=== PATIENT | female | born 1995 | race Two or more races ===

== ENCOUNTER 2017-12-01 21:40 | Emergency (ER) | payer MEDICAID ==
[~2017-12-01] VITALS: Ht 170.2 cm; Wt 94.2 kg
[~2017-12-01 21:40] MED LIST: IBUP-1984 PO; NO HOME MEDS; ONDA4TAB6 PO
[2017-12-01] MEDS ORDERED: ondansetron 4mg rapidly disintigrating tab PO ONE (22:20)
[2017-12-01 22:27] LABS: BASOPHILS % (AUTO) 0.3 % (0-1); EOSINOPHILS # (AUTO) 0.1 X10'3 (0-0.9); EOSINOPHILS % (AUTO) 0.7 % (0-6); HEMATOCRIT 40.9 % (35.0-45.0); HEMOGLOBIN 14.2 g/dl (12.0-16.0); LYMPHOCYTES % (AUTO) 15.7 % (21-51); MEAN CORPUSCULAR HEMOGLOBIN 30.8 PG (27.0-31.0); MEAN CORPUSCULAR HGB CONC 34.6 % (33.0-36.5); MEAN CORPUSCULAR VOLUME 89.1 FL (78-98); MEAN PLATELET VOLUME 10.3 FL (7.4-10.4); MONOCYTES # (AUTO) 1.1 X10'3 (0-0.9); MONOCYTES % (AUTO) 8.8 % (2-12); NEUTROPHILS # (AUTO) 9.3 X10'3 (1.8-7.7); NEUTROPHILS % (AUTO) 74.5 % (42-75); PLATELET COUNT 209 X10'3 (140-440); RED BLOOD COUNT 4.59 X10'6 (4.20-5.60); RED CELL DISTRIBUTION WIDTH 13.3 % (11.5-14.5); WHITE BLOOD COUNT 12.6 X10'3 (4.5-11.0)
[2017-12-01 22:36] LABS: CLARITY,URINE Clear (Clear); COLOR,URINE Yellow (Yellow); GLUCOSE, URINE Negative (Neg); KETONES,URINE Negative (Neg); LEUKOCYTE ESTERASE ,URINE Negative (Neg); NITRITES, URINE Negative (Neg); OCCULT BLOOD,URINE Trace (Neg); PROTEIN,URINE Negative (Neg); URINE HCG NEGATIVE (NEG)
[2017-12-01 22:37] LABS: PROTHROMBIN TIME 10.2 SECONDS (9.0-12.0)
[2017-12-01 22:38] LABS: UA COLLECTION TYPE CLN CATCH MIDSTREAM
[2017-12-01 22:42] LABS: ALANINE AMINOTRANSFERASE 71 U/L (12-78); ALBUMIN 4.3 G/DL (3.4-5.0); ALBUMIN/GLOBULIN RATIO 0.9 (1.1-1.5); ALKALINE PHOSPHATASE 61 IU/L (46-116); ANION GAP 15 (8-16); ASPARTATE AMINO TRANSFERASE 99 U/L (10-37); BILIRUBIN,TOTAL 0.8 MG/DL (0.1-1.0); BLOOD UREA NITROGEN 7 MG/DL (7-18); BUN/CREATININE RATIO 7.4 (6.6-38.0); CALCIUM 9.7 MG/DL (8.5-10.1); CHLORIDE 97 MMOL/L (99-107); CREATININE 0.95 MG/DL (0.40-0.90); GLUCOSE 107 MG/DL (70-104); POTASSIUM 3.8 MMOL/L (3.5-5.1); SODIUM 136 MMOL/L (135-145); TOTAL CARBON DIOXIDE 24.3 MMOL/L (24-32); TOTAL PROTEIN 9.1 G/DL (6.4-8.2); eGFR 74 ML/MIN
[2017-12-01 22:47] LABS: BACTERIA,URINE FEW /HPF (Neg); SQUAMOUS EPITHELIAL CELL,UR FEW /LPF (FEW); WBC,URINE 0-4 /HPF (0-4)
[2017-12-01] MEDS ORDERED: morphine 4 MG/ML inj SYRINge IV ONE (23:55)
[2017-12-01] MEDS ORDERED: normal saline 1000ml 1,000 ML IV ONE (23:55)
[2017-12-01] MEDS ORDERED: ondansetron/PF 4mg/2ml inj IV ONE (23:55)
[2017-12-02] MEDS ORDERED: ONDA8TAB9 PO (00:45)
[2017-12-02 01:17] LABS: ANISOCYTOSIS FEW; PLATELET ESTIMATE NORMAL; TOTAL CELLS COUNTED 100
[2017-12-02 01:18] LABS: STOMATOCYTES 1+; TOXIC GRANULATION 2+; TOXIC VACUOLATION 2+
[2017-12-02 01:35] VITALS: BP 134/75
== END 2017-12-02 01:35 | disposition home or self-care (01) ==
LOC: ER 21:40
DX: R11.2 Nausea with vomiting, unspecified (principal); R19.7 Diarrhea, unspecified; E78.00 Pure hypercholesterolemia, unspecified
CPT/HCPCS: 36415; 80053; 81001; 81025; 85025; 85610; 96361; 96374; 96375; 99284; J2270; J2405; J7030

== ENCOUNTER 2019-04-16 14:12 | Emergency (ER) | payer MEDICAID ==
[~2019-04-16] VITALS: Ht 170.2 cm; Wt 99.0 kg
[~2019-04-16 14:12] MED LIST changes: +ONDA8TAB9 PO
[2019-04-16] MEDS ORDERED: HYDROcodone/acetaminophen 10/325mg tab PO ONE (16:50)
[2019-04-16] MEDS ORDERED: cyclobenzaprine 10mg tablet PO ONE (16:50)
[2019-04-16] MEDS ORDERED: triamcinolone acetonide 40mg/ml inj IM ONE (16:50)
[2019-04-16] MEDS ORDERED: ketorolac trometh inj. 60 MG/2 ML VIAL IM ONE (16:50)
[2019-04-16] MEDS ORDERED: HYDR-4383 PO (17:00)
[2019-04-16] MEDS ORDERED: NAPR-56 PO (17:00)
[2019-04-16] MEDS ORDERED: CYCL-1 PO (17:00)
--- NOTE | 2019-04-16 17:11 | NUR ---
PT SAYS THAT SHE'S TAKEN NORCO BEFORE ND HASN'T HAD ANY ISSUES WITH IT. UNABLE TO SCAN ALL MEDS AT THIS TIME, SCANNER ISN'T WORKING.
[2019-04-16 17:19] VITALS: BP 139/87
== END 2019-04-16 17:21 | disposition home or self-care (01) ==
LOC: ER 14:13
DX: M54.41 Lumbago with sciatica, right side (principal); G89.29 Other chronic pain; E78.00 Pure hypercholesterolemia, unspecified; Z88.5 Allergy status to narcotic agent; Z88.8 Allergy status to other drugs, medicaments and biological substances; Z79.899 Other long term (current) drug therapy
CPT/HCPCS: 96372; 99283; J1885; J3301

== ENCOUNTER 2019-07-07 23:44 | Emergency (ER) | payer MEDICAID ==
[~2019-07-07] VITALS: Ht 170.2 cm; Wt 97.7 kg
[~2019-07-07 23:44] MED LIST changes: +CYCL-1 PO; +HYDR-4383 PO
[2019-07-07 23:46] VITALS: BP 187/130
[2019-07-08] MEDS ORDERED: DICL50TA8 PO (00:08)
[2019-07-08] MEDS ORDERED: morphine 4 MG/ML inj SYRINge IM ONE (00:10)
[2019-07-08] MEDS ORDERED: ketorolac trometh inj. 60 MG/2 ML VIAL IM ONE (00:10)
[2019-07-09] MEDS ORDERED: PRED20TA PO (01:06)
[2019-07-09] MEDS ORDERED: OXYC-150 PO (01:06)
[2019-07-09] MEDS ORDERED: ORPH100T2 PO (01:06)
== END 2019-07-08 00:56 | disposition home or self-care (01) ==
LOC: ER 23:45
DX: M54.41 Lumbago with sciatica, right side (principal); E78.00 Pure hypercholesterolemia, unspecified; G89.29 Other chronic pain; M79.604 Pain in right leg; Z88.6 Allergy status to analgesic agent; Z88.5 Allergy status to narcotic agent; Z79.899 Other long term (current) drug therapy
CPT/HCPCS: 96372; 99283; J1885; J2270

== ENCOUNTER 2019-07-08 22:53 | Emergency (ER) | payer MEDICAID ==
[~2019-07-08] VITALS: Ht 170.2 cm; Wt 97.7 kg
[~2019-07-08 22:53] MED LIST changes: +DICL50TA8 PO
[2019-07-09] MEDS ORDERED: morphine 4 MG/ML inj SYRINge IM ONE (00:35)
[2019-07-09] MEDS ORDERED: ketorolac trometh inj. 60 MG/2 ML VIAL IM ONE (00:35)
[2019-07-09] MEDS ORDERED: orphenadrine citrate 60mg/2ml inj. IM ONE (00:35)
[2019-07-09] MEDS ORDERED: PRED20TA PO (01:06)
[2019-07-09] MEDS ORDERED: ORPH100T2 PO (01:06)
[2019-07-09] MEDS ORDERED: OXYC-150 PO (01:06)
[2019-07-09] MEDS ORDERED: triamcinolone acetonide 40mg/ml inj IM ONE (01:10)
[2019-07-09 01:47] VITALS: BP 118/72
== END 2019-07-09 01:50 | disposition home or self-care (01) ==
LOC: ER 22:54
DX: M54.41 Lumbago with sciatica, right side (principal); E78.00 Pure hypercholesterolemia, unspecified; G89.29 Other chronic pain; Z88.6 Allergy status to analgesic agent; Z88.5 Allergy status to narcotic agent; Z79.899 Other long term (current) drug therapy
CPT/HCPCS: 96372; 99283; J1885; J2270; J2360; J3301

== ENCOUNTER 2019-07-18 00:12 | Emergency (ER) | payer MEDICAID ==
[~2019-07-18] VITALS: Ht 170.2 cm; Wt 95.9 kg
[~2019-07-18 00:12] MED LIST changes: +ORPH100T2 PO; +OXYC-150 PO
[2019-07-18] MEDS ORDERED: LORazepam 2 mg/ml vial IM ONE (00:20)
[2019-07-18] MEDS ORDERED: morphine 4 MG/ML inj SYRINge IM ONE (00:20)
[2019-07-18] MEDS ORDERED: ketorolac trometh inj. 60 MG/2 ML VIAL IM ONE (00:20)
[2019-07-18] MEDS ORDERED: LIDOcaine 5% patch TP ONE (00:20)
[2019-07-18] MEDS ORDERED: ondansetron 4mg rapidly disintigrating tab PO ONE (01:05)
[2019-07-18] MEDS ORDERED: OXYC-150 PO (01:34)
[2019-07-18 01:50] VITALS: BP 140/94
[2019-07-18] MEDS ORDERED: LIDOcaine 1% 30ml preserv. free vial ONE (08:00)
== END 2019-07-18 01:56 | disposition home or self-care (01) ==
LOC: ER 00:12
DX: M54.41 Lumbago with sciatica, right side (principal); E78.00 Pure hypercholesterolemia, unspecified; G89.29 Other chronic pain; Z88.6 Allergy status to analgesic agent; Z88.5 Allergy status to narcotic agent; Z79.899 Other long term (current) drug therapy
CPT/HCPCS: 20552; 96372; 99284; J1885; J2001; J2270